=== PATIENT | male | born 1955 | race Caucasian/White ===

== ENCOUNTER 2017-12-31 20:58 | Observation (INO) | payer SELFPAY ==
[2017-12-31 21:22] LABS: ADD MAN DIFF? NO
[2017-12-31 21:24] LABS: WHITE BLOOD COUNT 9.5 10^3/ul (4.8-10.8)
[2017-12-31 21:24] LABS: BASOPHIL # 0.1 10^3/ul (0.0-0.1); BASOPHILS % 0.5 % (0.0-2.0); EOSINOPHILS # 0.2 10^3/ul (0.0-0.5); EOSINOPHILS % 2.2 % (0.0-7.0); HEMATOCRIT 45.1 % (42.0-52.0); HEMOGLOBIN 15.4 g/dl (14.0-18.0); LYMPHOCYTES # 1.8 10^3/ul (0.8-2.9); LYMPHOCYTES % 18.7 % (15.0-51.0); MEAN CORPUSCULAR HEMOGLOBIN 28.7 pg (29.0-33.0); MEAN CORPUSCULAR HGB CONC 34.1 g/dl (32.0-37.0); MEAN CORPUSCULAR VOLUME 84.1 fl (82.0-101.0); MEAN PLATELET VOLUME 11.6 fl (7.4-10.4); MONOCYTE # 0.7 10^3/ul (0.3-0.9); MONOCYTES % 7.4 % (0.0-11.0); NEUTROPHIL # 6.7 10^3/ul (1.6-7.5); NEUTROPHILS % 70.7 % (39.0-77.0); PLATELET COUNT 204 10^3/UL (140-415); RED BLOOD COUNT 5.36 10^6/ul (4.70-6.10); RED CELL DISTRIBUTION WIDTH 14.6 % (11.5-14.5)
[2017-12-31] MEDS: morphine 4 MG/ML VIAL IV (21:24)
[2017-12-31] MEDS: ASPIRIN 81 MG TAB PO (21:24)
[2017-12-31] MEDS: NITROGLYCERIN 2% 1 GM OINT PKT TD (21:24)
[2017-12-31] MEDS: ONDANSETRON 4 MG INJ IV (21:24)
[2017-12-31] MEDS: SOD CHLORIDE 0.9% 1,000 ML IV (21:25)
[2017-12-31] MEDS ORDERED: NITROGLYCERIN (SL) 0.4 MG TAB SL (21:30)
[2017-12-31 22:05] LABS: ANION GAP 17 (8-16); BLOOD UREA NITROGEN 24 mg/dl (7-20); CALCIUM 9.8 mg/dl (8.4-10.2); CARBON DIOXIDE 22 mmol/L (21-31); CHLORIDE 109 mmol/L (97-110); CREATININE 1.22 mg/dl (0.61-1.24); GLUCOSE 132 mg/dl (70-220); POTASSIUM 4.1 mmol/L (3.5-5.1); SODIUM 144 mmol/L (135-144)
[2017-12-31 22:17] LABS: TROPONIN-I 0.112 ng/ml (0.000-0.120)
[2017-12-31] MEDS: SOD CHLORIDE 0.9% 100 ML (22:26)
[2017-12-31] MEDS: IODIXANOL LOCM 100 ML BTL (22:27)
[2018-01-01] MEDS ORDERED: ONDANSETRON 4 MG INJ IV
[2018-01-01] MEDS ORDERED: NACL 0.9% 3 ML SYG IV (00:30)
[2018-01-01] MEDS ORDERED: ALBUTEROL/IPRATROPIUM (NEB) 3 ML AMP HHN (00:30)
[2018-01-01] MEDS ORDERED: NITROGLYCERIN (SL) 0.4 MG TAB SL (00:30)
[2018-01-01] MEDS ORDERED: ACETAMINOPHEN 325 MG TAB PO ×2 (00:30)
[2018-01-01 03:24] LABS: ADD MAN DIFF? NO
[2018-01-01 03:27] LABS: WHITE BLOOD COUNT 7.3 10^3/ul (4.8-10.8)
[2018-01-01 03:27] LABS: BASOPHILS % 0.6 % (0.0-2.0); EOSINOPHILS # 0.2 10^3/ul (0.0-0.5); EOSINOPHILS % 3.3 % (0.0-7.0); HEMATOCRIT 43.4 % (42.0-52.0); HEMOGLOBIN 14.2 g/dl (14.0-18.0); LYMPHOCYTES # 1.8 10^3/ul (0.8-2.9); LYMPHOCYTES % 24.5 % (15.0-51.0); MEAN CORPUSCULAR HGB CONC 32.7 g/dl (32.0-37.0); MEAN CORPUSCULAR VOLUME 85.4 fl (82.0-101.0); MEAN PLATELET VOLUME 11.9 fl (7.4-10.4); MONOCYTE # 0.5 10^3/ul (0.3-0.9); NEUTROPHIL # 4.7 10^3/ul (1.6-7.5); NEUTROPHILS % 64.2 % (39.0-77.0); PLATELET COUNT 180 10^3/UL (140-415); RED BLOOD COUNT 5.08 10^6/ul (4.70-6.10); RED CELL DISTRIBUTION WIDTH 14.6 % (11.5-14.5)
[2018-01-01 03:48] LABS: HEMOGLOBIN A1C 6.7 % (0-5.9)
[2018-01-01 03:49] LABS: CREATINE KINASE 148 IU/L (23-200)
[2018-01-01 03:52] LABS: ALANINE AMINOTRANSFERASE 91 IU/L (13-69); ALBUMIN/GLOBULIN RATIO 1.21; ALKALINE PHOSPHATASE 117 IU/L (42-121); ANION GAP 12 (8-16); ASPARTATE AMINO TRANSFERASE 54 IU/L (15-46); BILIRUBIN,INDIRECT 0.9 mg/dl (0-1.1); BILIRUBIN,TOTAL 0.9 mg/dl (0.2-1.3); BLOOD UREA NITROGEN 24 mg/dl (7-20); CALCIUM 9.1 mg/dl (8.4-10.2); CARBON DIOXIDE 25 mmol/L (21-31); CHLORIDE 111 mmol/L (97-110); CHOL/HDL RATIO 4.1 RATIO; CHOLESTEROL 154 mg/dl (100-200); CREATININE 1.18 mg/dl (0.61-1.24); GLUCOSE 152 mg/dl (70-220); HDL CHOLESTEROL 37 mg/dl (30-78); LDL CHOLESTEROL,CALCULATED 83 mg/dl; MAGNESIUM 1.4 mg/dl (1.7-2.5); POTASSIUM 4.2 mmol/L (3.5-5.1); SODIUM 144 mmol/L (135-144); TOTAL PROTEIN 7.3 g/dl (6.1-8.1); TRIGLYCERIDES 171 mg/dl (0-149)
[2018-01-01 04:04] LABS: CK INDEX 2.7; CK-MB 4.01 ng/ml (0.0-2.4); TROPONIN-I 0.099 ng/ml (0.000-0.120)
[2018-01-01] MEDS: LEVOFLOXACIN 500MG/D5W (PMX) 100 ML IVPB (08:04)
[2018-01-01] MEDS: ASPIRIN 81 MG TAB PO (08:55)
[2018-01-01] MEDS: MAGNESIUM SULFATE 3 GM in SOD CHLORIDE 0.9% 100 ML IVPB (08:55)
[2018-01-01] MEDS: ENOXAPARIN 40 MG/0.4 ML SYG SC (08:56)
[2018-01-01 10:38] LABS: CREATINE KINASE 122 IU/L (23-200)
[2018-01-01 10:47] LABS: CK INDEX 2.7; CK-MB 3.24 ng/ml (0.0-2.4); TROPONIN-I 0.091 ng/ml (0.000-0.120)
[2018-01-02] MEDS: LEVOFLOXACIN 500MG/D5W (PMX) 100 ML IVPB (06:11)
[2018-01-02 09:09] LABS: ADD MAN DIFF? NO
[2018-01-02 09:20] LABS: WHITE BLOOD COUNT 6.2 10^3/ul (4.8-10.8)
[2018-01-02 09:20] LABS: BASOPHILS % 0.6 % (0.0-2.0); EOSINOPHILS # 0.2 10^3/ul (0.0-0.5); EOSINOPHILS % 2.9 % (0.0-7.0); HEMATOCRIT 47.7 % (42.0-52.0); HEMOGLOBIN 15.6 g/dl (14.0-18.0); LYMPHOCYTES # 1.4 10^3/ul (0.8-2.9); LYMPHOCYTES % 22.1 % (15.0-51.0); MEAN CORPUSCULAR HEMOGLOBIN 28.2 pg (29.0-33.0); MEAN CORPUSCULAR HGB CONC 32.7 g/dl (32.0-37.0); MEAN CORPUSCULAR VOLUME 86.1 fl (82.0-101.0); MEAN PLATELET VOLUME 12.7 fl (7.4-10.4); MONOCYTE # 0.5 10^3/ul (0.3-0.9); MONOCYTES % 8.8 % (0.0-11.0); NEUTROPHILS % 65.1 % (39.0-77.0); PLATELET COUNT 187 10^3/UL (140-415); RED BLOOD COUNT 5.54 10^6/ul (4.70-6.10); RED CELL DISTRIBUTION WIDTH 14.5 % (11.5-14.5)
[2018-01-02 09:42] LABS: ANION GAP 13 (8-16); BLOOD UREA NITROGEN 26 mg/dl (7-20); CALCIUM 9.1 mg/dl (8.4-10.2); CARBON DIOXIDE 24 mmol/L (21-31); CHLORIDE 109 mmol/L (97-110); GLUCOSE 132 mg/dl (70-220); POTASSIUM 3.8 mmol/L (3.5-5.1); SODIUM 142 mmol/L (135-144)
[2018-01-02] MEDS: ASPIRIN 81 MG TAB PO (09:49)
[2018-01-02] MEDS: ENOXAPARIN 40 MG/0.4 ML SYG SC (09:53)
[2018-01-03 12:19] LABS: NIL 0.03 IU/mL; QUANTIFERON(R)-TB GOLD NEGATIVE (NEGATIVE); TB-NIL <0.00 IU/mL
== END 2018-01-02 10:45 | disposition left against medical advice (07) ==
LOC: MS4 23:45 → E/R 20:58
DX: J18.9 Pneumonia, unspecified organism (principal); E11.9 Type 2 diabetes mellitus without complications; R91.8 Other nonspecific abnormal finding of lung field; E78.5 Hyperlipidemia, unspecified; I10 Essential (primary) hypertension; E66.9 Obesity, unspecified; Z68.30 Body mass index [BMI] 30.0-30.9, adult
CPT/HCPCS: 36415; 71045; 71275; 80048; 80053; 80061; 82550; 82553; 83036; 83735; 84443; 84484; 85025; 86480; 93005; 93970; 96374; 96375; 99285-25; G0378